=== PATIENT | female | born 1990 | race African-American/Black ===

== ENCOUNTER 2018-08-21 07:14 | Outpatient (CLI) | payer OTHER ==
--- NOTE | 2018-08-21 08:50 | RAD ---
PA AND LATERAL VIEWS OF THE CHEST: HISTORY: Asthma, wheezing. FINDINGS: The cardiomediastinum is normal. The lungs are expanded and clear. The bony thorax is normal. IMPRESSION: Normal exam. POS: [facility]
--- NOTE | 2018-08-21 08:57 | ULT ---
TRANSABDOMINAL PELVIC ULTRASOUND WITH KITCHEN SCALE AND COLOR FLOW AND SPECTRAL DOPPLER IMAGING: HISTORY: Dysmenorrhea. The patient states she is not sexually active. FINDINGS: The uterus measures 7.3 x 4.4 x 4.8 cm without focal mass or endometrial fluid. The endometrium deshawn ures 17 mm in thickness. The right ovary measures 2.3 x 2.1 x 2.4 cm and the left ovary measures 2.7 x 2.2 x 1.7 cm. A 1.4 cm cyst is seen in the left ovary. Flow is demonstrated to both ovaries. There is no free fluid in th e cul-de-sac. IMPRESSION: Unremarkable exam. POS: [facility]
== END 2018-08-21 07:15 | disposition home or self-care (01) ==
LOC: SCSULT 07:14
PROVIDERS: ATTEND Family Medicine
DX: R53.83 Other fatigue (principal); N94.6 Dysmenorrhea, unspecified; D50.0 Iron deficiency anemia secondary to blood loss (chronic)
CPT/HCPCS: 71046; 76856; 93976

== ENCOUNTER 2019-03-31 13:45 | Emergency (ER) | payer OTHER ==
[2019-03-31] MEDS ORDERED: Prochlorperazine 10 MG/2 ML VIAL ONE (14:24)
[2019-03-31] MEDS ORDERED: diphenhydrAMINE 50 MG/ML VIAL ONE (14:25)
[2019-03-31] MEDS ORDERED: Ketorolac Tromethamine 30 MG/ML VIAL ONE (14:25)
== END 2019-03-31 15:34 | disposition home or self-care (01) ==
LOC: SCSER 13:45
DX: G43.909 Migraine, unspecified, not intractable, without status migrainosus (principal); J45.909 Unspecified asthma, uncomplicated; F32.9 Major depressive disorder, single episode, unspecified; F41.9 Anxiety disorder, unspecified; F90.9 Attention-deficit hyperactivity disorder, unspecified type; Z79.899 Other long term (current) drug therapy
CPT/HCPCS: 96365; 96375; J0780; J1200; J1885